=== PATIENT | female | born 2000 | race Two or more races ===

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

== ENCOUNTER → 2022-07-05 | Outpatient (REF) | payer OTHER ==
[~2022-07-05] MED LIST changes: +ONDA4TAB6; +PANT40TA29; +SETL1TAB; +SUCR1TAB56
[2022-07-05 16:42] LABS: BASO # 0.1 10^3/uL (0.0-0.2); BASO % 0.9 % (0.0-1.0); EOS # 0.2 10^3/uL (0.0-0.5); EOS % 2.5 % (0.0-3.0); HEMATOCRIT 43.1 % (36.0-47.0); HEMOGLOBIN 13.9 g/dl (12.0-15.5); LYMPH # 3.1 10^3/uL (1.5-5.0); LYMPH % 38.4 % (24.0-44.0); MEAN CORPUSCULAR HEMOGLOBIN 27.9 pg (27.0-33.0); MEAN CORPUSCULAR HGB CONC 32.3 g/dl (32.0-36.5); MEAN CORPUSCULAR VOLUME 86.5 fl (80.0-96.0); MONO # 0.7 10^3/uL (0.0-0.8); MONO % 8.1 % (2.0-8.0); NEUTROPHILS % 49.8 % (36.0-66.0); PLATELET COUNT, AUTOMATED 440 10^3/uL (150-450); RED BLOOD COUNT 4.98 10^6/uL (4.00-5.40)
[2022-07-05 17:23] LABS: HEMOGLOBIN A1c 5.3 %
[2022-07-05 18:10] LABS: ALBUMIN 4.1 GM/DL (3.2-5.2); ALT/SGPT 20 U/L (12-78); BILIRUBIN,TOTAL 0.4 MG/DL (0.2-1.0); BLOOD UREA NITROGEN 7 MG/DL (7-18); CALCIUM LEVEL 9.4 MG/DL (8.5-10.1); CARBON DIOXIDE LEVEL 25 MEQ/L (21-32); CHLORIDE LEVEL 106 MEQ/L (98-107); CHOLESTEROL LEVEL 159 MG/DL (<200); CHOLESTEROL RISK RATIO 3.878 (<5); CREATININE FOR GFR 0.64 MG/DL (0.55-1.30); GLUCOSE, FASTING 86 MG/DL (70-100); HDL CHOLESTEROL 41 MG/DL (>40); LDL CHOLESTEROL 102 MG/DL (<100); NON-HDL-C 118 MG/DL; POTASSIUM SERUM 4.2 MEQ/L (3.5-5.1); SODIUM LEVEL 138 MEQ/L (136-145); THYROID STIMULATING HORMONE 0.743 uIU/ML (0.463-3.98); TOTAL 25(OH) VITAMIN D 28.5 NG/ML (30.0-100.0); TOTAL PROTEIN 7.9 GM/DL (6.4-8.2); TRIGLYCERIDES LEVEL 81 MG/DL (<150)
== END ==
LOC: M LAB REF 16:20
PROVIDERS: ATTEND Nurse Practitioner Family
DX: R63.6 Underweight (principal)

== ENCOUNTER → 2022-10-19 | Outpatient (REF) | payer OTHER ==
[2022-10-19 18:17] LABS: HIV 1&2 SCREEN CENTAUR NEGATIVE (NEGATIVE)
[2022-10-19 18:25] LABS: HEPATITIS C VIRUS ABY INDEX 0.1 INDEX (<0.8)
== END ==
LOC: M LAB REF 16:29
PROVIDERS: ATTEND Nurse Practitioner Family
DX: Z11.59 Encounter for screening for other viral diseases (principal); Z11.4 Encounter for screening for human immunodeficiency virus [HIV]

== ENCOUNTER → 2022-10-22 | Outpatient (REF) | payer OTHER | LOC: M LAB REF 16:25 | PROVIDERS: ATTEND Pediatrics | DX: L02.91 Cutaneous abscess, unspecified (principal) ==

== ENCOUNTER → 2023-01-18 | Outpatient (REF) ==
[2023-01-18 13:23] LABS: RSV AMPLIFICATION NEGATIVE (NEGATIVE)
== END ==
LOC: M EMP 12:17
PROVIDERS: ATTEND Family Medicine
DX: Z20.828 Contact with and (suspected) exposure to other viral communicable diseases (principal)

== ENCOUNTER → 2023-01-31 | Outpatient (REF) | LOC: M EMP 10:33 | PROVIDERS: ATTEND Family Medicine | DX: Z11.52 Encounter for screening for COVID-19 (principal) ==

== ENCOUNTER → 2023-03-28 | Outpatient (REF) ==
[2023-03-28 14:44] LABS: RSV AMPLIFICATION NEGATIVE (NEGATIVE)
== END ==
LOC: M EMP 13:53
PROVIDERS: ATTEND Family Medicine
DX: Z20.828 Contact with and (suspected) exposure to other viral communicable diseases (principal)

== ENCOUNTER → 2023-05-21 | Outpatient (CLI) | payer OTHER ==
[2023-05-21 14:01] LABS: HEMATOCRIT 33.3 % (36.0-47.0); MEAN CORPUSCULAR HEMOGLOBIN 28.1 pg (27.0-33.0); MEAN CORPUSCULAR VOLUME 85.2 fl (80.0-96.0); PLATELET COUNT, AUTOMATED 347 10^3/uL (150-450); RED BLOOD COUNT 3.91 10^6/uL (4.00-5.40)
[2023-05-21 14:52] LABS: HIV 1&2 SCREEN NEGATIVE (NEGATIVE)
[2023-05-21 15:01] LABS: HEPATITIS C VIRUS ABY INDEX 0.12 INDEX (<0.8)
[2023-05-21 15:33] LABS: GC DNA AMPLIFICATION NEGATIVE (NEGATIVE)
== END ==
LOC: M LAB 13:29
PROVIDERS: ATTEND Advanced Practice Midwife
DX: Z34.01 Encounter for supervision of normal first pregnancy, first trimester (principal)

== ENCOUNTER → 2023-05-31 | Outpatient (REF) | LOC: M EMP 12:43 | PROVIDERS: ATTEND Family Medicine | DX: Z20.822 Contact with and (suspected) exposure to COVID-19 (principal) ==

== ENCOUNTER → 2023-06-28 | Outpatient (CLI) | payer OTHER | LOC: M LAB 14:28 | PROVIDERS: ATTEND Advanced Practice Midwife | DX: Z34.02 Encounter for supervision of normal first pregnancy, second trimester (principal) ==

== ENCOUNTER → 2023-07-28 | Outpatient (CLI) | payer OTHER | LOC: M WHC 14:05 | PROVIDERS: ATTEND Advanced Practice Midwife | DX: Z34.02 Encounter for supervision of normal first pregnancy, second trimester (principal) ==

== ENCOUNTER → 2023-08-22 | Outpatient (REF) | LOC: M EMP 07:37 | PROVIDERS: ATTEND Family Medicine | DX: Z11.52 Encounter for screening for COVID-19 (principal) ==

== ENCOUNTER 2023-08-25 19:03 | Emergency (ER) | payer OTHER ==
[~2023-08-25] VITALS: Ht 157.5 cm; Wt 58.2 kg
[2023-08-25] MEDS ORDERED: LIDOCAINE 1% MDV 20ML VIAL SC ONE (20:30)
[2023-08-25 22:14] VITALS: BP 113/60; TEMP 98.3; O2SAT 98
[2023-08-28] MEDS ORDERED: DOXY100C82 PO (12:18)
[2023-08-28] MEDS ORDERED: ZITH1POW PO (15:59)
[2023-08-28] MEDS ORDERED: CEPH500C PO (16:01)
== END 2023-08-25 22:18 | disposition home or self-care (01) ==
LOC: M ED 19:03
DX: O99.712 Diseases of the skin and subcutaneous tissue complicating pregnancy, second trimester (principal); Z79.899 Other long term (current) drug therapy

== ENCOUNTER → 2023-09-05 | Outpatient (REF) ==
[~2023-09-05] MED LIST changes: +CEPH500C PO; +DOXY100C82 PO; +ZITH1POW PO
[2023-09-05 11:51] LABS: RSV AMPLIFICATION NEGATIVE (NEGATIVE)
== END ==
LOC: M EMP 07:36
PROVIDERS: ATTEND Family Medicine
DX: Z20.828 Contact with and (suspected) exposure to other viral communicable diseases (principal)

== ENCOUNTER → 2023-09-14 | Outpatient (CLI) | payer OTHER ==
[2023-09-14 08:23] LABS: HEMATOCRIT 32.8 % (36.0-47.0); HEMOGLOBIN 11.3 g/dl (12.0-15.5); MEAN CORPUSCULAR HEMOGLOBIN 29.7 pg (27.0-33.0); MEAN CORPUSCULAR HGB CONC 34.5 g/dl (32.0-36.5); MEAN CORPUSCULAR VOLUME 86.3 fl (80.0-96.0); PLATELET COUNT, AUTOMATED 310 10^3/uL (150-450); WHITE BLOOD COUNT 11.9 10^3/uL (4.0-10.0)
[2023-09-14 09:53] LABS: CHLAMYDIA DNA AMPLIFICATION NEGATIVE (NEGATIVE); GC DNA AMPLIFICATION NEGATIVE (NEGATIVE)
== END ==
LOC: M LAB 06:36
PROVIDERS: ATTEND Specialist
DX: Z34.02 Encounter for supervision of normal first pregnancy, second trimester (principal); Z3A.00 Weeks of gestation of pregnancy not specified

== ENCOUNTER 2023-09-19 05:35 | Outpatient (CLI) | payer OTHER ==
[~2023-09-19] VITALS: Ht 157.5 cm; Wt 60.6 kg
[2023-09-19 05:50] VITALS: BP 112/69
[2023-09-19] MEDS ORDERED: HOME MED LIST COMPLETE! XX SCH (06:25)
[2023-09-19 06:31] LABS: APPEARANCE, URINE CLEAR (CLEAR); BACTERIA, URINE AUTO NEGATIVE (NEGATIVE); BILIRUBIN, URINE AUTO NEGATIVE (NEGATIVE); BLOOD, URINE BLOOD NEGATIVE (NEGATIVE); COLOR, URINE YELLOW (YELLOW); GLUCOSE, URINE (UA) AUTO NEGATIVE (NEGATIVE); KETONE, URINE AUTO NEGATIVE (NEGATIVE); LEUKOCYTE ESTERASE, URINE AUTO NEGATIVE (NEGATIVE); NITRITE, URINE AUTO NEGATIVE (NEGATIVE); PROTEIN, URINE AUTO NEGATIVE (NEGATIVE); RBC, URINE AUTO 1 /HPF (0-3); SPECIFIC GRAVITY URINE AUTO 1.009 (1.002-1.035); SQUAMOUS EPITHELIAL CELL UR AU 2 /HPF (0-6); UROBILINOGEN, URINE AUTO 0.2 mg/dL (0.0-2.0); WBC, URINE AUTO 2 /HPF (0-3)
[2023-09-19 07:14] LABS: BASO % 0.3 % (0.0-1.0); EOS # 0.1 10^3/uL (0.0-0.5); EOS % 0.9 % (0.0-3.0); HEMOGLOBIN 11.2 g/dl (12.0-15.5); LYMPH # 2.1 10^3/uL (1.5-5.0); LYMPH % 17.6 % (24.0-44.0); MEAN CORPUSCULAR HEMOGLOBIN 29.2 pg (27.0-33.0); MEAN CORPUSCULAR HGB CONC 33.9 g/dl (32.0-36.5); MEAN CORPUSCULAR VOLUME 85.9 fl (80.0-96.0); MONO # 0.8 10^3/uL (0.0-0.8); NEUTROPHILS # 8.6 10^3/uL (1.5-8.5); NEUTROPHILS % 72.7 % (36.0-66.0); PLATELET COUNT, AUTOMATED 294 10^3/uL (150-450); RED BLOOD COUNT 3.84 10^6/uL (4.00-5.40); WHITE BLOOD COUNT 11.8 10^3/uL (4.0-10.0)
[2023-09-19 07:45] LABS: LIPASE 25 U/L (12-53)
[2023-09-19 07:46] LABS: ALBUMIN 2.7 G/DL (3.2-5.2); ALKALINE PHOSPHATASE 80 U/L (46-116); ALT/SGPT 9 U/L (7.0-40); AST/SGOT 11 U/L (<34); BILIRUBIN,TOTAL 0.3 MG/DL (0.3-1.2); BLOOD UREA NITROGEN 6 MG/DL (9-23); CALCIUM LEVEL 8.5 MG/DL (8.5-10.1); CARBON DIOXIDE LEVEL 22 MMOL/L (20-31); CHLORIDE LEVEL 108 MMOL/L (98-107); CREATININE FOR GFR 0.27 MG/DL (0.55-1.30); GLOMERULAR FILTRATION RATE > 60.0 (>60); GLUCOSE, FASTING 75 MG/DL (60-100); POTASSIUM SERUM 3.5 MMOL/L (3.5-5.1); SODIUM LEVEL 138 MMOL/L (136-145)
== END 2023-09-19 08:10 | disposition home or self-care (01) ==
LOC: M LDO 05:35
PROVIDERS: ATTEND Specialist
DX: O26.892 Other specified pregnancy related conditions, second trimester (principal); R10.32 Left lower quadrant pain; O21.2 Late vomiting of pregnancy; Z3A.27 27 weeks gestation of pregnancy
CPT/HCPCS: 36415; 59025; 80053; 81001; 83690; 85025; G0463

== ENCOUNTER → 2023-09-27 | Outpatient (REF) | payer OTHER | LOC: M LAB REF 19:25 | PROVIDERS: ATTEND Nurse Practitioner Family | DX: R10.9 Unspecified abdominal pain (principal) ==

== ENCOUNTER 2023-10-04 15:39 | Outpatient (CLI) | payer OTHER ==
[~2023-10-04] VITALS: Ht 157.5 cm; Wt 61.6 kg
[2023-10-04 15:56] VITALS: BP 111/64; O2SAT 98
[2023-10-04] MEDS ORDERED: TUMS500C PO (16:00)
[2023-10-04 16:33] VITALS: BP 113/65
[2023-10-04] MEDS ORDERED: HOME MED LIST COMPLETE! XX SCH (17:05)
[2023-10-04 17:08] LABS: HEMATOCRIT 34.9 % (36.0-47.0); HEMOGLOBIN 11.6 g/dl (12.0-15.5); MEAN CORPUSCULAR HEMOGLOBIN 28.9 pg (27.0-33.0); MEAN CORPUSCULAR HGB CONC 33.2 g/dl (32.0-36.5); MEAN CORPUSCULAR VOLUME 86.8 fl (80.0-96.0); PLATELET COUNT, AUTOMATED 275 10^3/uL (150-450); RED BLOOD COUNT 4.02 10^6/uL (4.00-5.40); WHITE BLOOD COUNT 11.8 10^3/uL (4.0-10.0)
[2023-10-04 17:43] LABS: ALBUMIN 2.6 G/DL (3.2-5.2); ALKALINE PHOSPHATASE 88 U/L (46-116); ALT/SGPT < 9 U/L (7.0-40); AST/SGOT 9 U/L (<34); BILIRUBIN,TOTAL 0.3 MG/DL (0.3-1.2); BLOOD UREA NITROGEN < 5 MG/DL (9-23); CALCIUM LEVEL 8.8 MG/DL (8.5-10.1); CARBON DIOXIDE LEVEL 24 MMOL/L (20-31); CHLORIDE LEVEL 107 MMOL/L (98-107); CREATININE FOR GFR 0.33 MG/DL (0.55-1.30); GLOMERULAR FILTRATION RATE > 60.0 (>60); GLUCOSE, FASTING 66 MG/DL (60-100); POTASSIUM SERUM 3.9 MMOL/L (3.5-5.1); SODIUM LEVEL 137 MMOL/L (136-145); TOTAL PROTEIN 5.9 G/DL (5.7-8.2)
== END 2023-10-04 18:00 | disposition home or self-care (01) ==
LOC: M LDO 15:39
PROVIDERS: ATTEND Obstetrics & Gynecology
DX: O26.893 Other specified pregnancy related conditions, third trimester (principal); R42 Dizziness and giddiness; M54.59 Other low back pain; Z3A.29 29 weeks gestation of pregnancy

== ENCOUNTER 2023-10-18 06:09 | Emergency (ER) | payer OTHER ==
[~2023-10-18] VITALS: Ht 157.5 cm; Wt 62.0 kg
[~2023-10-18 06:09] MED LIST changes: +TUMS500C PO
[2023-10-18 06:11] VITALS: BP 107/80; TEMP 97.9; O2SAT 98
[2023-10-18] MEDS ORDERED: FLINCHW14 PO (06:19)
[2023-10-18] MEDS ORDERED: DOCU100C16 (06:19)
[2023-10-19] MEDS ORDERED: BUSP10TA PO (08:09)
== END 2023-10-18 09:22 | disposition left against medical advice (07) ==
LOC: M ED 06:09
DX: Z53.21 Procedure and treatment not carried out due to patient leaving prior to being seen by health care provider (principal)

== ENCOUNTER 2023-10-19 07:36 | Outpatient (CLI) | payer OTHER ==
[~2023-10-19] VITALS: Ht 157.5 cm; Wt 62.8 kg
[~2023-10-19 07:36] MED LIST changes: +DOCU100C16; +FLINCHW14 PO
[2023-10-19 08:00] VITALS: BP 111/65; O2SAT 99
[2023-10-19] MEDS ORDERED: BUSP10TA PO (08:09)
[2023-10-19 08:16] VITALS: BP 108/61
[2023-10-19] MEDS ORDERED: LACTATED RINGER'S 1000 ML IV ONE (08:20)
[2023-10-19] MEDS ORDERED: HOME MED LIST COMPLETE! XX SCH (08:25)
[2023-10-19 08:28] VITALS: BP 111/55
[2023-10-19 09:08] LABS: INR 1.07; PROTHROMBIN TIME 13.6 SECONDS (12.5-14.5)
[2023-10-19 09:09] LABS: PARTIAL THROMBOPLASTIN TIME 28.2 SECONDS (24.8-34.2)
[2023-10-19 09:19] LABS: HEMATOCRIT 33.8 % (36.0-47.0); HEMOGLOBIN 11.7 g/dl (12.0-15.5); MEAN CORPUSCULAR HEMOGLOBIN 29.8 pg (27.0-33.0); MEAN CORPUSCULAR HGB CONC 34.6 g/dl (32.0-36.5); PLATELET COUNT, AUTOMATED 279 10^3/uL (150-450); RED BLOOD COUNT 3.93 10^6/uL (4.00-5.40)
[2023-10-19 09:30] VITALS: BP 104/61
[2023-10-19] MEDS: MULTIVITAMIN -ADULT INJECTION 10 ML in LR 1,000 ML IV ONE (09:30)
[2023-10-19 09:48] LABS: ALBUMIN 2.6 G/DL (3.2-5.2); ALKALINE PHOSPHATASE 110 U/L (46-116); ALT/SGPT 10 U/L (7.0-40); AST/SGOT 9 U/L (<34); BILIRUBIN,TOTAL 0.5 MG/DL (0.3-1.2); BLOOD UREA NITROGEN < 5 MG/DL (9-23); CALCIUM LEVEL 8.6 MG/DL (8.5-10.1); CARBON DIOXIDE LEVEL 22 MMOL/L (20-31); CHLORIDE LEVEL 107 MMOL/L (98-107); CREATININE FOR GFR 0.29 MG/DL (0.55-1.30); GLOMERULAR FILTRATION RATE > 60.0 (>60); GLUCOSE, FASTING 71 MG/DL (60-100); POTASSIUM SERUM 3.7 MMOL/L (3.5-5.1); SODIUM LEVEL 136 MMOL/L (136-145); TOTAL PROTEIN 6.2 G/DL (5.7-8.2)
[2023-10-19 11:16] VITALS: BP 115/64
[2023-10-19 12:25] VITALS: BP 118/73
== END 2023-10-19 13:27 | disposition home or self-care (01) ==
LOC: M LDO 07:36
PROVIDERS: ATTEND Advanced Practice Midwife
DX: O26.893 Other specified pregnancy related conditions, third trimester (principal); R55 Syncope and collapse; Z3A.31 31 weeks gestation of pregnancy; W18.2XXA Fall in (into) shower or empty bathtub, initial encounter; Y92.012 Bathroom of single-family (private) house as the place of occurrence of the external cause; Y93.9 Activity, unspecified; Y99.9 Unspecified external cause status
CPT/HCPCS: 59025; 80053; 85027; 85384; 85460; 85610; 85730; G0463

== ENCOUNTER → 2023-10-31 | Outpatient (REF) ==
[~2023-10-31] MED LIST changes: +BUSP10TA PO
== END ==
LOC: M EMP 10:42
PROVIDERS: ATTEND Family Medicine
DX: Z11.52 Encounter for screening for COVID-19 (principal)

== ENCOUNTER → 2023-10-31 | Outpatient (REF) | LOC: M EMP 10:49 | PROVIDERS: ATTEND Family Medicine | DX: Z11.52 Encounter for screening for COVID-19 (principal) ==

== ENCOUNTER → 2023-11-25 | Outpatient (REF) | payer OTHER ==
[~2023-11-25] MED LIST changes: +ACET-683 PO; +COLA100C5 PO; +OXYC-517 PO; +PREN1TAB11 PO
== END ==
LOC: M SFHCWAGY 12:55
PROVIDERS: ATTEND Specialist
DX: Z36.85 Encounter for antenatal screening for Streptococcus B (principal)

== ENCOUNTER 2023-12-02 19:15 | Outpatient (CLI) | payer OTHER ==
[~2023-12-02] VITALS: Ht 157.5 cm; Wt 67.1 kg
[~2023-12-02 19:15] MED LIST changes: -ACET-683 PO; -COLA100C5 PO; -OXYC-517 PO; -PREN1TAB11 PO
[2023-12-02 19:26] VITALS: BP 123/57; O2SAT 99
[2023-12-02] MEDS ORDERED: PREN1TAB11 PO (19:34)
[2023-12-02] MEDS ORDERED: HOME MED LIST COMPLETE! XX SCH (19:35)
[2023-12-02 20:28] VITALS: BP 107/55
== END 2023-12-02 20:30 | disposition home or self-care (01) ==
LOC: M LDO 19:15
PROVIDERS: ATTEND Advanced Practice Midwife
DX: O36.8130 Decreased fetal movements, third trimester, not applicable or unspecified (principal); Z3A.37 37 weeks gestation of pregnancy
CPT/HCPCS: 59025; G0463

== ENCOUNTER 2023-12-18 19:17 | Inpatient (IN) | payer OTHER ==
[~2023-12-18] VITALS: Ht 157.5 cm; Wt 68.1 kg
[~2023-12-18 19:17] MED LIST changes: +PREN1TAB11 PO
[2023-12-18 19:42] VITALS: BP 114/67
[2023-12-18 20:04] LABS: HEMATOCRIT 33.9 % (36.0-47.0); HEMOGLOBIN 11.5 g/dl (12.0-15.5); MEAN CORPUSCULAR HGB CONC 33.9 g/dl (32.0-36.5); MEAN CORPUSCULAR VOLUME 85.4 fl (80.0-96.0); PLATELET COUNT, AUTOMATED 242 10^3/uL (150-450); RED BLOOD COUNT 3.97 10^6/uL (4.00-5.40); WHITE BLOOD COUNT 10.8 10^3/uL (4.0-10.0)
[2023-12-18] MEDS ORDERED: LIDOCAINE 1% MDV 20ML VIAL INFIL PRN (20:30)
[2023-12-18] MEDS ORDERED: METHYLERGONOVINE MALEATE 0.2MG/ML 1ML VIAL IM PRN (20:30)
[2023-12-18] MEDS ORDERED: TRANEXAMIC ACID INJection 1,000 MG in NS 100 ML IV PRN (20:30)
[2023-12-18] MEDS ORDERED: OXYTOCIN DRIP 30 UNITS in IV 1 EA IV PRN (20:30)
[2023-12-18] MEDS ORDERED: CARBOPROST TROMETHAMINE 250 MCG/ML AMP IM PRN (20:30)
[2023-12-18 20:49] VITALS: BP 107/72
[2023-12-18] MEDS: miSOPROStol 50MCG 1/2 TABLET PO SCH (20:49)
[2023-12-18 21:26] VITALS: BP 95/52
[2023-12-18 21:57] VITALS: BP 108/53
[2023-12-18 22:26] VITALS: BP 107/64
[2023-12-19] VITALS (40 sets, daily range): BP systolic 93–139; BP diastolic 52–84
[2023-12-19] MEDS ORDERED: ONDANSETRON 4MG 2ML VIAL As Ordered ONE (06:13)
[2023-12-19] MEDS: ONDANSETRON 4MG 2ML VIAL IV SCH (06:17)
[2023-12-19] MEDS: LACTATED RINGER'S 1000 ML IV STA (11:26)
[2023-12-19] MEDS ORDERED: diphenhydrAMINE 50MG/ML VIAL IV PRN (11:50)
[2023-12-19] MEDS ORDERED: ePHEDrine SULFATE 25 MG/5 ML(5MG/ML) SYRINGE IVP PRN (11:50)
[2023-12-19] MEDS ORDERED: EPIDURAL/PCA KEYS XX PRN (11:50)
[2023-12-19] MEDS ORDERED: LR 500 ML IV PRN (11:50)
[2023-12-19] MEDS ORDERED: ONDANSETRON 4MG 2ML VIAL IV PRN ×2 (11:50→23:50)
[2023-12-19] MEDS ORDERED: NALOXONE INJ 0.4MG/1ML VIAL IV PRN (11:50)
[2023-12-19] MEDS: LR 1,000 ML IV SCH (12:40)
[2023-12-19] MEDS: FENTANYL/ROPIVACAINE/NACL BAG 100 ML EPIDURAL SCH (12:41)
[2023-12-19] MEDS: OXYTOCIN DRIP 30 UNITS in IV 1 EA IV SCH ×2 (15:11→23:50)
[2023-12-19] MEDS: ceFAZolin SOD 2 GM in IV 1 EA IV ONE (22:25)
[2023-12-19] MEDS ORDERED: OXYTOCIN DRIP 30 UNITS in IV 1 EA IV PRN (22:25)
[2023-12-19] MEDS ORDERED: ACETAMINOPHEN 1000MG 100ML IV BAG As Ordered ONE (22:29)
[2023-12-19] MEDS ORDERED: OXYTOCIN 30UNITS IN 0.9% NaCl 500ML IV BAG As Ordered ONE (22:29)
[2023-12-19] MEDS ORDERED: MORPHINE PRES-FREE INJ 10 MG/10 ML VIAL As Ordered ONE (22:29)
[2023-12-19] MEDS ORDERED: LIDOCAINE 2% W/EPINEPHRINE 20ML VIAL **PRES FREE As Ordered ONE (22:29)
[2023-12-19] MEDS: AZITHROMYCIN INJ 500 MG, VIAL MATE ADAPTER 1 EACH in NS 250 ML IV ONE (22:35)
[2023-12-19] MEDS: BICITRA 30ML SOLN UDC PO ONE (22:35)
[2023-12-19] MEDS ORDERED: DOCUSATE SODIUM 100MG CAPSULE PO PRN (23:50)
[2023-12-19] MEDS ORDERED: SIMETHICONE 80MG CHEW TAB PO PRN (23:50)
[2023-12-19] MEDS ORDERED: RHOGAM 300MCG (1500IU) INJ IM SCH (23:50)
[2023-12-20] VITALS (11 sets, daily range): BP systolic 96–127; BP diastolic 51–76; TEMP 98; O2SAT 98–100
[2023-12-20] MEDS ORDERED: COLA100C5 PO (00:03)
[2023-12-20] MEDS ORDERED: IBUP-1022 PO (00:03)
[2023-12-20] MEDS ORDERED: ACET-683 PO (00:03)
[2023-12-20] MEDS ORDERED: OXYC-517 PO (00:03)
[2023-12-20] MEDS: KETOROLAC 30 MG/ML 1ML VIAL IV SCH (04:40)
[2023-12-20] MEDS: METOCLOPRAMIDE INJ 10MG/2ML VIAL IV PRN (04:40)
[2023-12-20] MEDS: ACETAMINOPHEN 500 MG TAB PO SCH (04:59)
[2023-12-20] MEDS: diphenhydrAMINE 50MG/ML VIAL IV PRN (05:30)
[2023-12-20 06:43] LABS: HEMATOCRIT 29.5 % (36.0-47.0); HEMOGLOBIN 9.8 g/dl (12.0-15.5); MEAN CORPUSCULAR HGB CONC 33.2 g/dl (32.0-36.5); MEAN CORPUSCULAR VOLUME 87.3 fl (80.0-96.0); PLATELET COUNT, AUTOMATED 227 10^3/uL (150-450); RED BLOOD COUNT 3.38 10^6/uL (4.00-5.40); WHITE BLOOD COUNT 16.6 10^3/uL (4.0-10.0)
[2023-12-20] MEDS: PRENATAL VITAMINS CHEWABLE TABLET PO SCH (08:43)
[2023-12-20] MEDS: oxyCODONE 5MG TAB PO PRN (16:00)
[2023-12-21] MEDS: IBUPROFEN 600MG TAB PO SCH (00:26)
[2023-12-21 02:00] VITALS: BP 112/69; O2SAT 100
[2023-12-21 06:00] VITALS: BP 115/68; O2SAT 98
[2023-12-21] MEDS: MEASLES,MUMPS,RUBELLA VACCINE INJ (MMR-II) SC.IMMUN ONE (09:00)
[2023-12-21 10:00] VITALS: BP 109/74; O2SAT 100
[2023-12-21] MEDS: oxyCODONE 5MG TAB PO PRN (12:22)
== END 2023-12-21 17:27 | disposition home or self-care (01) | DRG 540 ==
LOC: M LDO 19:17 → M LDI 19:27 → M OBS 12-20 01:10
PROVIDERS: ADMIT Obstetrics & Gynecology; ATTEND Obstetrics & Gynecology
PROC: 3E0P7GC Introduction of Other Therapeutic Substance into Female Reproductive, Via Natural or Artificial Opening (ICD-10-PCS; 2023-12-18)
PROC: 10907ZC Drainage of Amniotic Fluid, Therapeutic from Products of Conception, Via Natural or Artificial Opening (ICD-10-PCS; 2023-12-19)
PROC: 10D00Z1 Extraction of Products of Conception, Low, Open Approach (ICD-10-PCS; principal; 2023-12-19 22:33)
DX: O62.0 Primary inadequate contractions (principal); O77.0 Labor and delivery complicated by meconium in amniotic fluid; Z3A.40 40 weeks gestation of pregnancy; O76 Abnormality in fetal heart rate and rhythm complicating labor and delivery; Z37.0 Single live birth

== ENCOUNTER → 2024-01-16 | Outpatient (REF) | payer OTHER ==
[~2024-01-16] MED LIST changes: +ACET-683 PO; +COLA100C5 PO; +OXYC-517 PO
== END ==
LOC: M SFHCDERM 17:10
PROVIDERS: ATTEND Physician Assistant
DX: Z79.899 Other long term (current) drug therapy (principal)

== ENCOUNTER → 2024-01-16 | Outpatient (CLI) | payer OTHER ==
[2024-01-16 15:21] LABS: HEMATOCRIT 39.5 % (36.0-47.0); HEMOGLOBIN 12.8 g/dl (12.0-15.5); MEAN CORPUSCULAR HEMOGLOBIN 27.6 pg (27.0-33.0); MEAN CORPUSCULAR HGB CONC 32.4 g/dl (32.0-36.5); MEAN CORPUSCULAR VOLUME 85.1 fl (80.0-96.0); PLATELET COUNT, AUTOMATED 400 10^3/uL (150-450); RED BLOOD COUNT 4.64 10^6/uL (4.00-5.40); WHITE BLOOD COUNT 7.6 10^3/uL (4.0-10.0)
[2024-01-16 15:52] LABS: ALBUMIN 3.3 G/DL (3.2-5.2); ALKALINE PHOSPHATASE 107 U/L (46-116); ALT/SGPT 13 U/L (7.0-40); AST/SGOT 11 U/L (<34); BILIRUBIN,TOTAL 0.3 MG/DL (0.3-1.2); BLOOD UREA NITROGEN 9 MG/DL (9-23); CALCIUM LEVEL 9.4 MG/DL (8.5-10.1); CARBON DIOXIDE LEVEL 26 MMOL/L (20-31); CHLORIDE LEVEL 107 MMOL/L (98-107); CREATININE FOR GFR 0.55 MG/DL (0.55-1.30); GLOMERULAR FILTRATION RATE > 60.0 (>60); GLUCOSE, FASTING 78 MG/DL (60-100); POTASSIUM SERUM 4.3 MMOL/L (3.5-5.1); SODIUM LEVEL 140 MMOL/L (136-145); TOTAL PROTEIN 6.8 G/DL (5.7-8.2)
[2024-01-16 15:56] LABS: HEPATITIS B SURFACE ANTIBODY NEGATIVE (POSITIVE)
[2024-01-16 16:21] LABS: HIV 1&2 SCREEN NEGATIVE (NEGATIVE)
[2024-01-16 16:29] LABS: HEPATITIS C VIRUS ABY INDEX < 0.02 INDEX (<0.8)
== END ==
LOC: M LAB 14:43
PROVIDERS: ATTEND Physician Assistant
DX: Z79.899 Other long term (current) drug therapy (principal)

== ENCOUNTER → 2024-02-21 | Outpatient (CLI) | payer OTHER, MEDICAID ==
[~2024-02-21] MED LIST changes: +FLUO-365; -FLUO20CA22; +ONDA-282; -ONDA4TAB6
== END ==
LOC: M WUC 15:14
PROVIDERS: ATTEND Nurse Practitioner Family
DX: M79.672 Pain in left foot (principal)

== ENCOUNTER 2024-03-12 00:36 | Emergency (ER) | payer OTHER ==
[~2024-03-12] VITALS: Ht 160 cm; Wt 60.1 kg
[2024-03-12] MEDS: LIDOCAINE W/EPINEPHRINE 1% 20ML VIAL SC ONE (04:03)
[2024-03-12] MEDS ORDERED: PERC5TAB12 PO (04:26)
[2024-03-12] MEDS: OXYCODONE/APAP 5MG/325MG(HOME DOSE PACK) PO ONE (04:34)
[2024-03-12 04:40] VITALS: BP 127/65; TEMP 98.2; O2SAT 99
== END 2024-03-12 04:42 | disposition home or self-care (01) ==
LOC: M ED 00:36
DX: N76.4 Abscess of vulva (principal)

== ENCOUNTER → 2024-03-13 | Outpatient (REF) | payer OTHER ==
[~2024-03-13] MED LIST changes: +PERC5TAB12 PO
[2024-03-13 16:39] LABS: GC DNA AMPLIFICATION NEGATIVE (NEGATIVE)
== END ==
LOC: M PLALAB 13:17
PROVIDERS: ATTEND Obstetrics & Gynecology
DX: N76.4 Abscess of vulva (principal)

== ENCOUNTER 2024-05-08 10:07 | Outpatient (RCR) | payer OTHER | END 2024-05-19 | LOC: M PT 10:07 | PROVIDERS: ATTEND Student in an Organized Health Care Education/Training Program | DX: S90.32XD Contusion of left foot, subsequent encounter (principal) ==

== ENCOUNTER → 2024-05-16 | Outpatient (REF) | LOC: M EMP 12:18 | PROVIDERS: ATTEND Family Medicine | DX: Z11.52 Encounter for screening for COVID-19 (principal) ==

== ENCOUNTER 2024-05-31 10:45 | Outpatient (RCR) | payer OTHER | END 2024-06-18 | LOC: M PT 10:45 | PROVIDERS: ATTEND Student in an Organized Health Care Education/Training Program | DX: S90.32XD Contusion of left foot, subsequent encounter (principal); S90.02XD Contusion of left ankle, subsequent encounter ==

== ENCOUNTER 2024-09-09 03:23 | Emergency (ER) | payer OTHER ==
[~2024-09-09] VITALS: Ht 157.5 cm; Wt 51.4 kg
[~2024-09-09 03:23] MED LIST changes: +AZIT1PAC2 PO; -ZITH1POW PO
[2024-09-09 03:27] VITALS: BP 124/73; TEMP 96.8; O2SAT 100
== END 2024-09-09 04:22 | disposition left against medical advice (07) ==
LOC: M ED 03:23
DX: Z53.21 Procedure and treatment not carried out due to patient leaving prior to being seen by health care provider (principal)

== ENCOUNTER → 2024-10-18 | Outpatient (REF) | payer OTHER ==
[2024-10-23 16:23] LABS: HPV APTIMA Not Detected (Not Detected)
== END ==
LOC: M PLALAB 15:05
PROVIDERS: ATTEND Obstetrics & Gynecology
DX: Z12.4 Encounter for screening for malignant neoplasm of cervix (principal); R87.610 Atypical squamous cells of undetermined significance on cytologic smear of cervix (ASC-US)

== ENCOUNTER → 2025-06-28 | Outpatient (REF) | payer OTHER ==
[~2025-06-28] MED LIST changes: +DOXY-442 PO; -DOXY100C82 PO; -IBUP-1022 PO; +IBUP600T42 PO
[2025-06-28 15:42] LABS: FREE T4 1.32 NG/DL (0.89-1.76)
== END ==
LOC: M LAB REF 14:24
PROVIDERS: ATTEND Nurse Practitioner Family
DX: R79.89 Other specified abnormal findings of blood chemistry (principal)

== ENCOUNTER 2025-07-22 17:16 | Emergency (ER) | payer OTHER ==
[~2025-07-22] VITALS: Ht 157.5 cm; Wt 50.0 kg
[2025-07-22] MEDS ORDERED: SECU300P (17:29)
[2025-07-22 19:33] VITALS: BP 99/60; TEMP 97.5; O2SAT 99
== END 2025-07-22 19:38 | disposition home or self-care (01) ==
LOC: M ED 17:16
DX: S06.0X0A Concussion without loss of consciousness, initial encounter (principal); S29.011A Strain of muscle and tendon of front wall of thorax, initial encounter; S20.319A Abrasion of unspecified front wall of thorax, initial encounter; V49.40XA Driver injured in collision with unspecified motor vehicles in traffic accident, initial encounter; Y92.9 Unspecified place or not applicable; Y93.9 Activity, unspecified; Y99.9 Unspecified external cause status; F41.9 Anxiety disorder, unspecified; F32.A Depression, unspecified; Z79.899 Other long term (current) drug therapy

== ENCOUNTER 2025-07-24 13:54 | Emergency (ER) | payer OTHER ==
[~2025-07-24] VITALS: Ht 157.5 cm; Wt 50.9 kg
[~2025-07-24 13:54] MED LIST changes: +SECU300P
[2025-07-24 13:57] VITALS: TEMP 97.7
[2025-07-24] MEDS: NS 500 ML IV ONE (15:27)
[2025-07-24] MEDS: diphenhydrAMINE 50 MG/ML VIAL IV STA (15:27)
[2025-07-24] MEDS: KETOROLAC 30 MG/ML 1 ML VIAL IV ONE (15:28)
[2025-07-24 16:07] VITALS: BP 105/63; O2SAT 100
== END 2025-07-24 16:11 | disposition home or self-care (01) ==
LOC: M ED 13:54
DX: S06.0XAD Concussion with loss of consciousness status unknown, subsequent encounter (principal); V43.62XD Car passenger injured in collision with other type car in traffic accident, subsequent encounter; Y92.9 Unspecified place or not applicable; Y93.9 Activity, unspecified; Y99.9 Unspecified external cause status
CPT/HCPCS: 70450; 96361; 96374; 96375; 99284; J1200; J1885; J2765